=== PATIENT | male | born 1955 | race Caucasian/White ===

== ENCOUNTER → 2025-01-31 | Outpatient (REF) | payer MEDICARE, SELFPAY ==
[2025-01-31 07:56] LABS: Hematocrit 30.0 % (40-54); Hemoglobin 9.4 g/dL (13.0-16.5); Mean Corp Hgb Conc 31.3 g/dL (32-36); Mean Corpuscular Volume 98.0 fL (80-94); Mean Platelet Vol. 11.8 fl (6.2-12.0); Platelet Count 318 K/mm3 (150-450); RBC Distribution Width CV 15.6 % (11.6-14.6); RBC Distribution Width SD 56.5 fl (35.1-43.9); Red Blood Count 3.06 M/mm3 (4.6-6.2); White Blood Count 9.8 K/mm3 (4.4-11.0)
== END ==
LOC: OLS.SANC 05:00
DX: I10 Essential (primary) hypertension (principal); E11.9 Type 2 diabetes mellitus without complications; E78.5 Hyperlipidemia, unspecified
CPT/HCPCS: 36415; 85027